=== PATIENT | male | born 1995 | race Asian ===

== ENCOUNTER 2017-04-21 14:35 | Emergency (ER) | payer OTHER ==
[~2017-04-21] VITALS: Ht 177.8 cm; Wt 75.2 kg
[2017-04-21 15:04] LABS: HEMATOCRIT 50.1 % (38.0-50.0); MCH 29.7 PG (29.0-34.0); MCHC 33.7 G/DL (30.0-36.0); MEAN PLAT.VOLUME 10.9 uM^3 (9.0-12.4); PLATELET COUNT 245 K/uL (156-360); RBC DIS.WIDTH-CV 12.3 % (11.8-14.6); RBC DIS.WIDTH-SD 39.8 % (39-53); RED BLOOD COUNT 5.69 M/uL (4.00-5.50)
[2017-04-21 15:14] LABS: CHLORIDE 105 mEq/L (99-109); POTASSIUM 4.7 mEq/L (3.7-5.4); SODIUM 139 mEq/L (136-147)
[2017-04-21 15:17] LABS: GLUCOSE 113 mg/dL (70-99)
[2017-04-21 15:17] LABS: ADD MIUA? YES; BILIRUBIN NEGATIVE; BLOOD MODERATE; COLOR YELLOW ((YELLOW)); GLUCOSE (STRIP) NEGATIVE; KETONES NEGATIVE; LEUKOCYTES NEGATIVE; NITRITE NEGATIVE; PROTEIN (STRIP) NEGATIVE; SPECIFIC GRAVITY 1.016 (1.000-1.030); UROBILINOGEN 0.2 MG/DL (0.2-1.0)
[2017-04-21 15:18] LABS: ANION GAP 9 MEQ/L (2-14)
[2017-04-21 15:19] LABS: TOTAL BILIRUBIN 1.7 mg/dL (0.0-1.0)
[2017-04-21 15:20] LABS: ALKALINE PHOSPHATASE 78 IU/L (3-129); GFR ESTIMATE (CALCULATED) > 59 mL/min/
[2017-04-21 15:22] LABS: UREA NITROGEN (BUN) 11 mg/dL (9-23)
[2017-04-21 15:24] LABS: BACTERIA RARE /HPF; EPITHELIAL CELLS RARE /HPF; MUCUS TRACE /LPF; RED BLOOD CELLS 20-30 /HPF (0-5); UCUL ADDED? NO; WHITE BLOOD CELLS 0-5 /HPF (0-5)
[2017-04-21] MEDS ORDERED: FLOMAX0.4 MG PO (17:08)
[2017-04-21] MEDS ORDERED: PERCOCET 5/31 TABLET PO (17:08)
[2017-04-21] MEDS ORDERED: ZOFRAN ODT4 MG PO (17:08)
[2017-04-21 17:33] VITALS: BP 127/60
== END 2017-04-21 17:34 | disposition home or self-care (01) ==
LOC: EME 14:35
DX: N13.2 Hydronephrosis with renal and ureteral calculous obstruction (principal); Z87.442 Personal history of urinary calculi
CPT/HCPCS: 74176; 80053; 81003; 85027; 99281; 99284; J1885; J2405; J7030